=== PATIENT | male | born 2000 | race Caucasian/White ===

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

== ENCOUNTER → 2022-05-03 09:09 | Outpatient (BNVA) | payer MEDICAID, SELFPAY ==
[2020-02-12 11:23] VITALS: BP 118/64; BMI 22.1
== END ==
PROVIDERS: Family Provider Nurse Practitioner; PCP Nurse Practitioner Family; Visit Provider Specialist
DX: G40.219 Localization-related (focal) (partial) symptomatic epilepsy and epileptic syndromes with complex partial seizures, intractable, without status epilepticus (principal)
CPT/HCPCS: 99214

== ENCOUNTER → 2025-04-15 13:47 | Outpatient (BNVA) | payer MEDICAID, SELFPAY ==
[2020-02-12 11:23] VITALS: BP 118/64; BMI 22.1
== END ==
PROVIDERS: Family Provider Nurse Practitioner; Visit Provider Specialist
DX: G40.219 Localization-related (focal) (partial) symptomatic epilepsy and epileptic syndromes with complex partial seizures, intractable, without status epilepticus (principal); G40.802 Other epilepsy, not intractable, without status epilepticus; G43.711 Chronic migraine without aura, intractable, with status migrainosus
CPT/HCPCS: 99215